=== PATIENT | female | born 1995 | race Caucasian/White ===

== ENCOUNTER 2021-08-21 07:48 | Emergency (ER) | payer MEDICAID ==
[2021-08-21 07:54] VITALS: TEMP 98
[2021-08-21] MEDS ORDERED: SODIUM CHLORIDE 0.9% 1,000 ML IV STA (08:11)
[2021-08-21] MEDS ORDERED: diphenhydrAMINE 50 MG/ML 1 ML VIAL IVP STA (08:11)
[2021-08-21] MEDS ORDERED: MORPHINE SULFATE 2 MG/ML SYRINGE IVP STA (08:11)
[2021-08-21] MEDS ORDERED: PANTOPRAZOLE 40 MG/10 ML VIAL IVP STA (08:11)
[2021-08-21] MEDS ORDERED: ONDANSETRON 4 MG/2 ML VIAL IVP STA (08:11)
[2021-08-21] MEDS ORDERED: MAG HYDROX/AL HYDROX/SIMETH 30 ML, HYOSCYAMINE ELIXIR 10 ML, LIDOCAINE VISCOUS 2% 10 ML PO STA ×3 (08:12)
[2021-08-21] MEDS ORDERED: LORazepam 1 MG TAB PO STA (08:13)
--- NOTE | 2021-08-21 08:20 | ED ---
General Adult HPI - General Chief complaint: Abdominal Pain Stated complaint: Abd/Back pain Time Seen by Provider: 08/21/21 07:55 Source: patient, RN notes reviewed, old records reviewed Limitations: no limitations - History of Present Illness Initial comments: Patient is a 26 year old female with past medical history remarkable for anxiety who presents emergency Department complaining of epigastric abdominal pain as well as substernal chest pain. Patient states she had a tooth pulled yesterday and was doing well. Was prescribed ibuprofen, antibiotic. She is been taking ibuprofen and antibiotic but she believes that the ibuprofen may be causing her stomach to feel bad. She states that this has happened previously with ibuprofen use. She tries to avoid it. Her abdominal symptoms are identical. Endorses nausea but no vomiting. No constipation or diarrhea. No vaginal discharge or bleeding. No urinary complaints. States the pain seems to radiate up substernally. It is a burning/sharp sensation that is somewhat worse with movement. States that her chest tightness is similar to anxiety in the past but is "stronger." Is not on medications for anxiety at home. Presents for further evaluation at this time. Denies any weakness, numbness, headaches. Denies any back pain. His no acute complaint at this time.Symptoms began approximately 3 hours ago. - Related Data Home Medications Medication Instructions Recorded Confirmed Azithromycin [Zithromax Z Pack] See Taper PO DAILY 08/21/21 08/21/21 Chlorhexidine Gluconate [Peridex] 15 ml PO BID 08/21/21 08/21/21 Ibuprofen [Motrin] 800 mg PO Q8H PRN 08/21/21 08/21/21 Previous Rx's Medication Instructions Recorded LORazepam [Ativan] 0.5 mg PO DAILY PRN 3 Days #3 tab 08/21/21 Mag Hydrox/Al Hydrox/Simeth 30 ml PO BID PRN #500 ml 08/21/21 [Maalox] Allergies Allergy/AdvReac Type Severity Reaction Status Date / Time Penicillins Allergy Swelling Verified 08/21/21 08:26 Review of Systems ROS Statement: Those systems with pertinent positive or pertinent negative responses have been documented in the HPI. Review of Systems: CONST: Denies fever EYES: Denies blurry vision ENT: Denies nasal congestion C/V: Endorses chest pain RESP: Denies shortness of breath GI: Endorses abdominal pain : Denies dysuria SKIN: Denies rash. MSK: Denies joint pain. NEURO: Denies headache ROS Other: All systems not noted in ROS Statement are negative. Past Medical History Past Medical History: No Reported History History of Any Multi-Drug Resistant Organisms: None Reported Past Surgical History: No Surgical Hx Reported Past Psychological History: No Psychological Hx Reported Smoking Status: Never smoker Past Alcohol Use History: None Reported Past Drug Use History: Marijuana General Exam - General Exam Comments Initial Comments: General: Appears in mild distress secondary to abdominal discomfort. HEAD: Normal with no signs of head trauma. EYES: PERRLA, EOMI, conjunctiva normal, no discharge. ENT: Hearing grossly intact, normal oropharynx. Moist mucous membranes.Left lower molar tooth extraction site is clean, no sign of infection, no erythema or edema. No oral swelling, neck swelling. RESPIRATORY: Clear breath sounds bilaterally. No wheezes, rales, or rhonchi. C/V: Regular rate and rhythm. S1 and S2 auscultated, no edema, peripheral pulses 2+ and intact throughout ABD: Abdomen is soft, nondistended. Mild tenderness to palpation in the epigastric region. No guarding. No peritoneal signs. No rebound tenderness. EXT: Normal range of motion, no obvious deformity SKIN: No rashes or lesions observed on exposed skin. NEURO: Alert and oriented 4. Limitations: no limitations Course Vital Signs 08/21/21 08/21/21 07:49 09:54 Temperature 98 F Pulse Rate 108 H 86 Respiratory 22 16 Rate Blood Pressure 122/81 110/68 O2 Sat by Pulse 100 100 Oximetry Medical Decision Making - Medical Decision Making Based on the patient's presentation and physical exam, I'm concerned for intra- abdominal process for current symptoms. Cannot rule out atypical chest pain. If her cardiac screening will be obtained including EKG, troponin and abdominal laboratory studies. She'll be symptomatic treatment with IV medications and fluids. Her chest pain does seem somewhat anxiety related and therefore she will be given a small dose of Ativan. She was in agreement this plan. Chest x-ray and abdominal x-ray will also be obtained. Vital signs are within normal limits. Initial tachycardia in triage has resolved at bedside. EKG shows no signs of acute ischemia. Chest x-ray and abdominal x-ray were relatively unremarkable. Abdominal x-ray did show nonspecific findings for possible enteritis. It does mention ileus, however patient has had no change in bowel movements. No reason to suggest ileus at this time. Laboratory studies were remarkable except for slight elevation in AST and ALT. Patient is not . Troponin is undetectable. Urinalysis is within normal limits. Remainder the labs are unremarkable. On reevaluation, patient's symptoms have resolved. I discussed with her her workup. It seems to have likely been a mix of anxiety as well as possible gastritis, however I did discuss she requires follow up with her PCP for further monitoring. She was in agreement this plan. She is tolerating oral intake. I will provide her with recommendations for PCP as well as instructed her to follow up with her insurance company for recommendations. She'll be discharged home at this time. I will provide the patient with a prescription for 3 tablets of Ativan, Maalox. I instructed her to continue her antibiotics. I instructed the patient to follow up with their PCP in the next 1-3 days . I explained that the patient should return to the emergency department if they experience any worsening symptoms. Strict return precautions were discussed with the patient. The patient expressed understanding of these instructions. I answered all questions that the patient had. The patient was discharged home in good condition with their prescriptions and follow up information. - Lab Data Result diagrams: 08/21/21 08:16 08/21/21 08:16 Lab Results 08/21/21 08/21/21 08/21/21 Range/Units 08:16 08:16 08:16 WBC 9.9 (3.8-10.6) k/uL RBC 3.84 (3.80-5.40) m/uL Hgb 11.9 (11.4-16.0) gm/dL Hct 35.6 (34.0-46.0) % MCV 92.8 (80.0-100.0) fL MCH 31.0 (25.0-35.0) pg MCHC 33.5 (31.0-37.0) g/dL RDW 12.0 (11.5-15.5) % Plt Count 255 (150-450) k/uL MPV 7.3 Neutrophils % 84 % Lymphocytes % 7 % Monocytes % 4 % Eosinophils % 4 % Basophils % 0 % Neutrophils # 8.3 H (1.3-7.7) k/uL Lymphocytes # 0.7 L (1.0-4.8) k/uL Monocytes # 0.4 (0-1.0) k/uL Eosinophils # 0.4 (0-0.7) k/uL Basophils # 0.0 (0-0.2) k/uL PT 10.3 (9.0-12.0) sec INR 0.9 (<1.2) APTT 24.1 (22.0-30.0) sec Sodium (137-145) mmol/L Potassium (3.5-5.1) mmol/L Chloride (98-107) mmol/L Carbon Dioxide (22-30) mmol/L Anion Gap mmol/L BUN (7-17) mg/dL Creatinine (0.52-1.04) mg/dL Est GFR (CKD-EPI)AfAm (>60 ml/min/1.73 sqM) Est GFR (CKD-EPI)NonAf (>60 ml/min/1.73 sqM) Glucose (74-99) mg/dL Calcium (8.4-10.2) mg/dL Total Bilirubin (0.2-1.3) mg/dL AST (14-36) U/L ALT (4-34) U/L Alkaline Phosphatase (38-126) U/L Troponin I (0.000-0.034) ng/mL Total Protein (6.3-8.2) g/dL Albumin (3.5-5.0) g/dL Amylase (30-110) U/L Lipase (23-300) U/L HCG, Qual Urine Color Yellow Urine Appearance Clear (Clear) Urine pH 6.0 (5.0-8.0) Ur Specific [place] 1.022 (1.001-1.035) Urine Protein Trace H (Negative) Urine Glucose (UA) Negative (Negative) Urine Ketones Negative (Negative) Urine Blood Negative (Negative) Urine Nitrite Negative (Negative) Urine Bilirubin Negative (Negative) Urine Urobilinogen 6.0 (<2.0) mg/dL Ur Leukocyte Esterase Negative (Negative) 08/21/21 08/21/21 Range/Units 08:16 08:16 WBC (3.8-10.6) k/uL RBC (3.80-5.40) m/uL Hgb (11.4-16.0) gm/dL Hct (34.0-46.0) % MCV (80.0-100.0) fL MCH (25.0-35.0) pg MCHC (31.0-37.0) g/dL RDW (11.5-15.5) % Plt Count (150-450) k/uL MPV Neutrophils % % Lymphocytes % % Monocytes % % Eosinophils % % Basophils % % Neutrophils # (1.3-7.7) k/uL Lymphocytes # (1.0-4.8) k/uL Monocytes # (0-1.0) k/uL Eosinophils # (0-0.7) k/uL Basophils # (0-0.2) k/uL PT (9.0-12.0) sec INR (<1.2) APTT (22.0-30.0) sec Sodium 138 (137-145) mmol/L Potassium 3.8 (3.5-5.1) mmol/L Chloride 105 (98-107) mmol/L Carbon Dioxide 24 (22-30) mmol/L Anion Gap 9 mmol/L BUN 14 (7-17) mg/dL Creatinine 0.49 L (0.52-1.04) mg/dL Est GFR (CKD-EPI)AfAm >90 (>60 ml/min/1.73 sqM) Est GFR (CKD-EPI)NonAf >90 (>60 ml/min/1.73 sqM) Glucose 114 H (74-99) mg/dL Calcium 8.8 (8.4-10.2) mg/dL Total Bilirubin 0.5 (0.2-1.3) mg/dL AST 234 H (14-36) U/L ALT 101 H (4-34) U/L Alkaline Phosphatase 63 (38-126) U/L Troponin I <0.012 (0.000-0.034) ng/mL Total Protein 6.7 (6.3-8.2) g/dL Albumin 4.2 (3.5-5.0) g/dL Amylase 65 (30-110) U/L Lipase 130 (23-300) U/L HCG, Qual Not Detected Urine Color Urine Appearance (Clear) Urine pH (5.0-8.0) Ur Specific [place] (1.001-1.035) Urine Protein (Negative) Urine Glucose (UA) (Negative) Urine Ketones (Negative) Urine Blood (Negative) Urine Nitrite (Negative) Urine Bilirubin (Negative) Urine Urobilinogen (<2.0) mg/dL Ur Leukocyte Esterase (Negative) - EKG Data -: EKG Interpreted by Me EKG Comments: 12-lead Electrocardiogram Interpretation Note EKG was reviewed and interpreted by myself. 12-lead ECG performed at 0802 is interpreted by me as revealing normal sinus rhythm at a rate of 88 beats per minute. [place] is normal. [place] interval is 121 ms, QRS duration is 88 ms, QTc is 396 ms.. There were no ST or T wave abnormalities to suggest myocardial ischemia or injury. R wave progression across the precordium was satisfactory. By my interpretation this EKG is non-diagnostic for acute ischemia. Disposition Clinical Impression: Abdominal pain, Atypical chest pain, Anxiety Disposition: HOME SELF-CARE Condition: Good Instructions (If sedation given, give patient instructions): Abdominal Pain (ED), Anxiety (ED) Prescriptions: LORazepam [Ativan] 0.5 mg PO DAILY PRN 3 Days #3 tab PRN Reason: Anxiety Mag Hydrox/Al Hydrox/Simeth [Maalox] 30 ml PO BID PRN #500 ml PRN Reason: Dyspepsia Is patient prescribed a controlled substance at d/c from ED?: Yes When asked, does pt state using other controlled substances?: No If prescribed controlled substance>3 days was MAPS reviewed?: Prescribed <3 Days Referrals: None,Stated [Primary Care Provider] - 1-2 days Bradley Faulkner [STAFF PHYSICIAN] - 1-2 days Eleonora Dick MD [REFERRING] - 1-2 days Time of Disposition: 09:50
[2021-08-21 08:40] LABS: Basophils % (A) 0 %; Eosinophils # (A) 0.4 k/uL (0-0.7); Eosinophils % (A) 4 %; HCT 35.6 % (34.0-46.0); HGB 11.9 gm/dL (11.4-16.0); Lymphocytes # (A) 0.7 k/uL (1.0-4.8); Lymphocytes % (A) 7 %; MCHC 33.5 g/dL (31.0-37.0); MCV 92.8 fL (80.0-100.0); Mean Platelet Volume 7.3; Monocytes # (A) 0.4 k/uL (0-1.0); Monocytes % (A) 4 %; Neutrophils # (A) 8.3 k/uL (1.3-7.7); Neutrophils % (A) 84 %; Platelet Count 255 k/uL (150-450); RBC 3.84 m/uL (3.80-5.40); WBC 9.9 k/uL (3.8-10.6)
[2021-08-21 08:52] LABS: INR 0.9 (<1.2); Partial Thromboplastin Time 24.1 sec (22.0-30.0); Prothrombin Time 10.3 sec (9.0-12.0)
[2021-08-21 09:05] LABS: HCG,Qualitative Serum Not Detected
[2021-08-21 09:06] LABS: ALT 101 U/L (4-34); AST 234 U/L (14-36); African American GFR (CKD) >90 (>60 ml/min/1.73 sqM); Albumin 4.2 g/dL (3.5-5.0); Alkaline Phosphatase 63 U/L (38-126); Amylase 65 U/L (30-110); Anion Gap 9 mmol/L; Blood Urea Nitrogen 14 mg/dL (7-17); Calcium 8.8 mg/dL (8.4-10.2); Carbon Dioxide 24 mmol/L (22-30); Chloride 105 mmol/L (98-107); Glucose 114 mg/dL (74-99); Lipase 130 U/L (23-300); Non-African American GFR(CKD) >90 (>60 ml/min/1.73 sqM); Potassium 3.8 mmol/L (3.5-5.1); Sodium 138 mmol/L (137-145); Total Bilirubin 0.5 mg/dL (0.2-1.3); Total Protein 6.7 g/dL (6.3-8.2)
[2021-08-21 09:09] LABS: Appearance,Urine Clear (Clear); Bilirubin,Urine Negative (Negative); Blood,Urine Negative (Negative); Color,Urine Yellow; Glucose,Urine (UA) Negative (Negative); Ketones,Urine Negative (Negative); Leukocyte Esterase,Urine Negative (Negative); Nitrite,Urine Negative (Negative); Protein,Urine Trace (Negative); Specific Gravity,Urine 1.022 (1.001-1.035)
--- NOTE | 2021-08-21 09:28 | XR ---
KUB HISTORY: Abdomen pain Frontal KUB submitted, no comparisons Air-fluid levels are present without bowel distention. Lung bases are clear. There is no evident pneu moperitoneum. Bone mineralization is normal. No pathologic calcification. IMPRESSION: Findings could represent an ileus or enteritis, follow-up as indicated
--- NOTE | 2021-08-21 09:29 | XR ---
EXAMINATION TYPE: XR chest 2V DATE OF EXAM: 08/21/2021 COMPARISON: NONE HISTORY: Pain TECHNIQUE: Frontal and lateral views of the chest are obtained. FINDINGS: There is no focal air space opacity, pleural effusion, or pneumothorax seen. The cardiac silhouette size is within normal limits. The osseous structures are intact, slight spinal curvature noted. IMPRESSION: No acute cardiopulmonary process.
[2021-08-21 09:55] VITALS: BP 110/68; PULSE 86; RESP 16
== END 2021-08-21 09:58 | disposition home or self-care (01) ==
LOC: EC 07:48
DX: F41.9 Anxiety disorder, unspecified (principal); R10.31 Right lower quadrant pain; R07.89 Other chest pain; Z88.0 Allergy status to penicillin
CPT/HCPCS: 36415; 93005; 80053; 82150; 83690; 84484; 85025; 85610; 85730; 81003; 84703; 71046; 74018; 99285; 96374; 96375; 96361; J1200; J2405; J2270; C9113

== ENCOUNTER 2022-10-09 13:29 | Emergency (ER) | payer OTHER ==
--- NOTE | 2022-10-09 16:07 | ED ---
General Adult HPI - General Chief complaint: Wound/Laceration Stated complaint: [facility], FINGER INJURY Time Seen by Provider: 10/09/22 14:10 Source: patient Mode of arrival: ambulatory Limitations: no limitations - History of Present Illness Initial comments: 27-year-old female presenting to the ED with a chief complaint of finger injury. She works at [employer]. States that she accidentally cut her left third finger with the bread slicer. Since then notes laceration and bleeding. Denies any other injury at this time. Last tetanus shot was 2 years ago. No other complaints. - Related Data Home Medications Medication Instructions Recorded Confirmed Azithromycin [Zithromax Z Pack] See Taper PO DAILY 08/21/21 08/21/21 Chlorhexidine Gluconate [Peridex] 15 ml PO BID 08/21/21 08/21/21 Ibuprofen [Motrin] 800 mg PO Q8H PRN 08/21/21 08/21/21 Previous Rx's Medication Instructions Recorded LORazepam [Ativan] 0.5 mg PO DAILY PRN 3 Days #3 tab 08/21/21 Mag Hydrox/Al Hydrox/Simeth 30 ml PO BID PRN #500 ml 08/21/21 [Maalox] Allergies Allergy/AdvReac Type Severity Reaction Status Date / Time Penicillins Allergy Swelling Verified 10/09/22 14:09 Review of Systems ROS Statement: Those systems with pertinent positive or pertinent negative responses have been documented in the HPI. ROS Other: All systems not noted in ROS Statement are negative. Past Medical History Past Medical History: No Reported History History of Any Multi-Drug Resistant Organisms: None Reported Past Surgical History: No Surgical Hx Reported Past Psychological History: No Psychological Hx Reported Smoking Status: Never smoker Past Alcohol Use History: None Reported Past Drug Use History: Marijuana General Exam Limitations: no limitations Head exam: Present: atraumatic, normocephalic Neck exam: Present: normal inspection Respiratory exam: Present: normal lung sounds bilaterally Cardiovascular Exam: Present: regular rate, normal rhythm GI/Abdominal exam: Present: soft Extremities exam: Present: other (Approximately 1-1/2 cm superficial laceration to the palmar aspect of the left third finger. Full active range of motion. Good capillary refill. Sensation intact.) Neurological exam: Present: alert, oriented X3 Skin exam: Present: warm, dry Course Vital Signs 10/09/22 14:06 Temperature 98.1 F Pulse Rate 83 Respiratory 20 Rate Blood Pressure 136/88 O2 Sat by Pulse 100 Oximetry Medical Decision Making - Medical Decision Making Was pt. sent in by a medical professional or institution (EDUARDO Gonzalez, [employer], urgent care, hospital, or custodial...) When possible be specific @ -No Did you speak to anyone other than the patient for history (EMS, parent, family, police, friend...)? What history was obtained from this source @ -No Did you review nursing and triage notes (agree or disagree)? Why? @ -I reviewed and agree with nursing and triage notes Were old charts reviewed (outside hosp., previous admission, EMS record, old EKG, old radiological studies, urgent care reports/EKG's, custodial records)? Report findings @ -No old charts were reviewed Differential Diagnosis (chest pain, altered mental status, abdominal pain women, abdominal pain men, vaginal bleeding, weakness, fever, dyspnea, syncope, headache, dizziness, GI bleed, back pain, seizure, CVA, palpatations, mental health, musculoskeletal)? @ -Acute fracture, acute tendon injury. This is not meant to be an all- inclusive list. EKG interpreted by me (3pts min.). @ -As above X-rays interpreted by me (1pt min.). @ -None done CT interpreted by me (1pt min.). @ -None done U/S interpreted by me (1pt. min.). @ -None done What testing was considered but not performed or refused? (CT, X-rays, U/S, labs)? Why? @ -None What meds were considered but not given or refused? Why? @ -None Did you discuss the management of the patient with other professionals (professionals i.e. EDUARDO Gonzalez, [employer], lab, RT, psych nurse, director social service, implementation specialist payroll, teacher, guest services officer, bottle caser)? Give summary @ -No Was smoking cessation discussed for >3mins.? @ -No Was critical care preformed (if so, how long)? @ -No Were there social determinants of health that impacted care today? How? (Homelessness, low income, unemployed, alcoholism, drug addiction, transportation, low edu. Level, literacy, decrease access to med. care, [facility], rehab)? @ -No Was there de-escalation of care discussed even if they declined (Discuss DNR or withdrawal of care, Hospice)? DNR status @ -No What co-morbidities impacted this encounter? (DM, HTN, Smoking, COPD, CAD, Cancer, CVA, ARF, Chemo, Hep., AIDS, mental health diagnosis, sleep apnea, morbid obesity)? @ -None Was patient admitted / discharged? Hospital course, mention meds given and route, prescriptions, significant lab abnormalities, going to OR and other pertinent info. @ -Discharge. Laceration was repaired with skin glue. No active bleeding at this time. Tetanus is up-to-date. Discharged home in stable condition. Discussed return precautions with patient who verbalizes agreement. Undiagnosed new problem with uncertain prognosis? @ -No Drug Therapy requiring intensive monitoring for toxicity (Heparin, Nitro, Insulin, Cardizem)? @ -No Were any procedures done? @ -Yes, laceration repair Diagnosis/symptom? @ -Laceration to left third finger Acute, or Chronic, or Acute on Chronic? @ -Acute Uncomplicated (without systemic symptoms) or Complicated (systemic symptoms)? @ -Uncomplicated Side effects of treatment? @ -No Exacerbation, Progression, or Severe Exacerbation? @ -No Poses a threat to life or bodily function? How? (Chest pain, [place], [place], pneumonia, PE, COPD, DKA, ARF, appy, cholecystitis, CVA, Diverticulitis, Homicidal, Suicid al, threat to staff... and all critical care pts) @ -No Disposition Clinical Impression: Laceration of finger Disposition: HOME SELF-CARE Condition: Good Instructions (If sedation given, give patient instructions): Skin Adhesive Care (ED) Additional Instructions: Please return to the Emergency Department if symptoms worsen or any other concerns. Monitor for signs of infection. Is patient prescribed a controlled substance at d/c from ED?: No Referrals: None,Stated [Primary Care Provider] - 1-2 days Time of Disposition: 16:09
[2022-10-09 16:16] VITALS: BP 124/72; PULSE 79; RESP 18; TEMP 98
== END 2022-10-09 16:54 | disposition home or self-care (01) ==
LOC: EC 13:29
DX: S61.213A Laceration without foreign body of left middle finger without damage to nail, initial encounter (principal); F12.90 Cannabis use, unspecified, uncomplicated; Z88.0 Allergy status to penicillin; W27.4XXA Contact with kitchen utensil, initial encounter; Y99.0 Civilian activity done for income or pay
CPT/HCPCS: 12001; 99282

== ENCOUNTER 2023-01-09 18:07 | Emergency (ER) | payer MEDICAID, OTHER ==
[2023-01-09 19:20] LABS: Basophils % (A) 0 %; Eosinophils # (A) 0.3 k/uL (0-0.7); Eosinophils % (A) 3 %; HCT 37.6 % (34.0-46.0); HGB 13.1 gm/dL (11.4-16.0); Lymphocytes % (A) 34 %; MCH 31.3 pg (25.0-35.0); MCHC 34.8 g/dL (31.0-37.0); MCV 90.1 fL (80.0-100.0); Mean Platelet Volume 7.6; Monocytes # (A) 0.4 k/uL (0-1.0); Monocytes % (A) 4 %; Neutrophils # (A) 5.1 k/uL (1.3-7.7); Neutrophils % (A) 57 %; Platelet Count 324 k/uL (150-450); RBC 4.17 m/uL (3.80-5.40); RDW 11.1 % (11.5-15.5); WBC 9.1 k/uL (3.8-10.6)
--- NOTE | 2023-01-09 19:33 | ED ---
Female Urogenital HPI - General Source: patient, RN notes reviewed Mode of arrival: ambulatory Limitations: no limitations <Elaine Flores - Last Filed: 01/09/23 19:30> <Rachel Aguilar - Last Filed: 01/10/23 00:59> - General Chief complaint: Vaginal Bleeding Stated complaint: 8wks preg-vag bleeding Time Seen by Provider: 01/09/23 19:30 - History of Present Illness Initial comments: 27-year-old female currently 8 weeks presenting with chief complaint of cramping and bleeding. Symptoms have been ongoing for the last 3 weeks. (Elaine Flores) 27-year-old female presents to the emergency department with chief complaint of continued vaginal bleeding. Last menstrual period 10416. She states that this is been going on for about 2 weeks and varies in intensity. She states today that it is minimal spotting with one pad every 3-4 hours. She admits to some mild cramping but she is not having any at this time. She has not had any care up to this point. She is currently on vitamins. No other significant past medical history. (Rachel Aguilar) - Related Data Home Medications Medication Instructions Recorded Confirmed Azithromycin [Zithromax Z Pack] See Taper PO DAILY 08/21/21 08/21/21 Chlorhexidine Gluconate [Peridex] 15 ml PO BID 08/21/21 08/21/21 Ibuprofen [Motrin] 800 mg PO Q8H PRN 08/21/21 08/21/21 Previous Rx's Medication Instructions Recorded LORazepam [Ativan] 0.5 mg PO DAILY PRN 3 Days #3 tab 08/21/21 Mag Hydrox/Al Hydrox/Simeth 30 ml PO BID PRN #500 ml 08/21/21 [Maalox] Allergies Allergy/AdvReac Type Severity Reaction Status Date / Time Penicillins Allergy Swelling Verified 01/09/23 18:33 Review of Systems ROS Other: All systems not noted in ROS Statement are negative. <Elaine Flores - Last Filed: 01/09/23 19:30> ROS Other: All systems not noted in ROS Statement are negative. <Rachel Aguilar - Last Filed: 01/10/23 00:59> ROS Statement: Those systems with pertinent positive or pertinent negative responses have been documented in the HPI. Past Medical History Past Medical History: No Reported History History of Any Multi-Drug Resistant Organisms: None Reported Past Surgical History: No Surgical Hx Reported Past Psychological History: No Psychological Hx Reported Smoking Status: Never smoker Past Alcohol Use History: None Reported Past Drug Use History: None Reported, Marijuana <Elaine Flores - Last Filed: 01/09/23 19:30> General Exam Limitations: no limitations <Elaine Flores - Last Filed: 01/09/23 19:30> General appearance: alert, in no apparent distress Head exam: Present: atraumatic, normocephalic, normal inspection Eye exam: Present: normal appearance, PERRL, EOMI. Absent: scleral icterus, conjunctival injection, periorbital swelling ENT exam: Present: normal exam, mucous membranes moist Neck exam: Present: normal inspection. Absent: tenderness, meningismus, lymphadenopathy Respiratory exam: Present: normal lung sounds bilaterally. Absent: respiratory distress, wheezes, rales, rhonchi, stridor Cardiovascular Exam: Present: regular rate, normal rhythm, normal heart sounds. Absent: systolic murmur, diastolic murmur, rubs, gallop, clicks GI/Abdominal exam: Present: soft, normal bowel sounds. Absent: distended, tenderness, guarding, rebound, rigid Back exam: Present: normal inspection Neurological exam: Present: alert, oriented X3 Psychiatric exam: Present: normal affect, normal mood Skin exam: Present: warm, dry, intact, normal color. Absent: rash <Rachel Aguilar - Last Filed: 01/10/23 00:59> - General Exam Comments Initial Comments: Visual Physical Exam Vital signs reviewed General: Well-appearing, nontoxic, no acute distress. Head: Normocephalic, atraumatic Eyes: PERRLA, EOMI ENT: Airway patent Chest: Nonlabored breathing Skin: No visual rash, normal skin tone Neuro: Alert and oriented 3 Musculoskeletal: No gross abnormalities (Elaine Flores) Course Vital Signs 01/09/23 01/09/23 01/09/23 18:30 20:58 21:55 Temperature 98.0 F 98.2 F Pulse Rate 109 H 72 82 Respiratory 20 18 18 Rate Blood Pressure 133/95 118/66 107/76 O2 Sat by Pulse 98 99 98 Oximetry Medical Decision Making - Lab Data Result diagrams: 01/09/23 18:38 <MarkScottieyee - Last Filed: 01/09/23 19:30> - Lab Data Result diagrams: 01/09/23 18:38 01/09/23 18:38 <Rachel Aguilar - Last Filed: 01/10/23 00:59> - Medical Decision Making Was pt. sent in by a medical professional or institution (, PA, FLOOR SPACE ALLOCATOR, urgent care, hospital, or usp...) When possible be specific @ -No Did you speak to anyone other than the patient for history (EMS, parent, family, police, friend...)? What history was obtained from this source @ -No Did you review nursing and triage notes (agree or disagree)? Why? @ -I reviewed and agree with nursing and triage notes Were old charts reviewed (outside hosp., previous admission, EMS record, old EKG, old radiological studies, urgent care reports/EKG's, usp records)? Report findings @ -No old charts were reviewed Differential Diagnosis (chest pain, altered mental status, abdominal pain women, abdominal pain men, vaginal bleeding, weakness, fever, dyspnea, syncope, headache, dizziness, GI bleed, back pain, seizure, CVA, palpatations, mental health, musculoskeletal)? @ -Differential Vaginal Bleeding: Spontaneous , threatened , molar , ectopic , bloody show, incompetent cervix, abruptioplacenta, placenta previa, uterine rupture, dysfunctional uterine bleeding, hemorrhage, uterine fibroids, this is not meant to be an all-inclusive list. EKG interpreted by me (3pts min.). @ -None X-rays interpreted by me (1pt min.). @ -None done CT interpreted by me (1pt min.). @ -None done U/S interpreted by me (1pt. min.). @ -Ultrasound shows intrauterine gestational sac with the exact but no evidence of IUP What testing was considered but not performed or refused? (CT, X-rays, U/S, labs)? Why? @ -None What meds were considered but not given or refused? Why? @ -None Did you discuss the management of the patient with other professionals (professionals i.e. , PA, FLOOR SPACE ALLOCATOR, lab, RT, psych nurse, manager social work, roller, teacher, infantry weapons officer, case hardener)? Give summary @ -Management was discussed with Dr. Harrington who recommends repeat hCG in 48 hours and outpatient follow-up in the office Was smoking cessation discussed for >3mins.? @ -No Was critical care preformed (if so, how long)? @ -No Were there social determinants of health that impacted care today? How? (Justyn elessness, low income, unemployed, alcoholism, drug addiction, transportation, low edu. Level, literacy, decrease access to med. care, residential, rehab)? @ -No Was there de-escalation of care discussed even if they declined (Discuss DNR or withdrawal of care, Hospice)? DNR status @ -No What co-morbidities impacted this encounter? (DM, HTN, Smoking, COPD, CAD, Cancer, CVA, ARF, Chemo, Hep., AIDS, mental health diagnosis, sleep apnea, morbid obesity)? @ -None Was patient admitted / discharged? Hospital course, mention meds given and route, prescriptions, significant lab abnormalities, going to OR and other pertinent info. @ -Discharged. Patient presented to emergency department chief complaint vaginal bleeding and .Laboratory studies essentially unremarkable, hCG 12933, blood type B+ and not requiring repair; UA shows large blood,>182 RBCs; ultrasound shows intrauterine gestational sac with yolk sac but no evidence of IUP, irregular shape of sac with internal debris noted. Management was discussed with Dr. Harrington who recommends repeat hCG in 48 hours and outpatient follow-up in the office on Thursday. Patient understanding and agreeable with plan. Patient stable at time of discharge. Case discussed with Dr. Jorge Undiagnosed new problem with uncertain prognosis? @ -No Drug Therapy requiring intensive monitoring for toxicity (Heparin, Nitro, Insulin, Cardizem)? @ -No Were any procedures done? @ -No Diagnosis/symptom? @ -threatened miscarriage Acute, or Chronic, or Acute on Chronic? @ -acute Uncomplicated (without systemic symptoms) or Complicated (systemic symptoms)? @ uncomplicated] Side effects of treatment? @ -No Exacerbation, Progression, or Severe Exacerbation? @ -No Poses a threat to life or bodily function? How? (Chest pain, [place], [place], pneumonia, PE, COPD, DKA, ARF, appy, cholecystitis, CVA, Diverticulitis, Homicidal, Suicidal, threat to staff... and all critical care pts) @ -No (MikerickashelyRachel) - Lab Data Lab Results 01/09/23 01/09/23 01/09/23 Range/Units 18:38 18:38 18:38 WBC 9.1 (3.8-10.6) k/uL RBC 4.17 (3.80-5.40) m/uL Hgb 13.1 (11.4-16.0) gm/dL Hct 37.6 (34.0-46.0) % MCV 90.1 (80.0-100.0) fL MCH 31.3 (25.0-35.0) pg MCHC 34.8 (31.0-37.0) g/dL RDW 11.1 L (11.5-15.5) % Plt Count 324 (150-450) k/uL MPV 7.6 Neutrophils % 57 % Lymphocytes % 34 % Monocytes % 4 % Eosinophils % 3 % Basophils % 0 % Neutrophils # 5.1 (1.3-7.7) k/uL Lymphocytes # 3.0 (1.0-4.8) k/uL Monocytes # 0.4 (0-1.0) k/uL Eosinophils # 0.3 (0-0.7) k/uL Basophils # 0.0 (0-0.2) k/uL Sodium (137-145) mmol/L Potassium (3.5-5.1) mmol/L Chloride (98-107) mmol/L Carbon Dioxide (22-30) mmol/L Anion Gap mmol/L BUN (7-17) mg/dL Creatinine (0.52-1.04) mg/dL Est GFR (CKD-EPI)AfAm (>60 ml/min/1.73 sqM) Est GFR (CKD-EPI)NonAf (>60 ml/min/1.73 sqM) Glucose (74-99) mg/dL Calcium (8.4-10.2) mg/dL Total Bilirubin (0.2-1.3) mg/dL AST (14-36) U/L ALT (4-34) U/L Alkaline Phosphatase (38-126) U/L Total Protein (6.3-8.2) g/dL Albumin (3.5-5.0) g/dL HCG, Quant mIU/mL Urine Color Yellow Urine Appearance Cloudy H (Clear) Urine pH 6.0 (5.0-8.0) Ur Specific [place] 1.025 (1.001-1.035) Urine Protein Trace H (Negative) Urine Glucose (UA) Negative (Negative) Urine Ketones Negative (Negative) Urine Blood Large H (Negative) Urine Nitrite Negative (Negative) Urine Bilirubin Negative (Negative) Urine Urobilinogen <2.0 (<2.0) mg/dL Ur Leukocyte Esterase Small H (Negative) Urine RBC >182 H (0-5) /hpf Urine WBC 10 H (0-5) /hpf Ur Squamous Epith Cells 5 H (0-4) /hpf Urine Mucus Many H (None) /hpf Urine HCG, Qual Detected (Not Detectd) Blood Type Blood Type Confirm Blood Type Recheck Bld Type Recheck Status Antibody Screen Spec Expiration Date 01/09/23 01/09/23 01/09/23 Range/Units 18:38 19:00 19:05 WBC (3.8-10.6) k/uL RBC (3.80-5.40) m/uL Hgb (11.4-16.0) gm/dL Hct (34.0-46.0) % MCV (80.0-100.0) fL MCH (25.0-35.0) pg MCHC (31.0-37.0) g/dL RDW (11.5-15.5) % Plt Count (150-450) k/uL MPV Neutrophils % % Lymphocytes % % Monocytes % % Eosinophils % % Basophils % % Neutrophils # (1.3-7.7) k/uL Lymphocytes # (1.0-4.8) k/uL Monocytes # (0-1.0) k/uL Eosinophils # (0-0.7) k/uL Basophils # (0-0.2) k/uL Sodium 137 (137-145) mmol/L Potassium 3.9 (3.5-5.1) mmol/L Chloride 102 (98-107) mmol/L Carbon Dioxide 22 (22-30) mmol/L Anion Gap 13 mmol/L BUN 16 (7-17) mg/dL Creatinine 0.37 L (0.52-1.04) mg/dL Est GFR (CKD-EPI)AfAm >90 (>60 ml/min/1.73 sqM) Est GFR (CKD-EPI)NonAf >90 (>60 ml/min/1.73 sqM) Glucose 91 (74-99) mg/dL Calcium 9.4 (8.4-10.2) mg/dL Total Bilirubin 0.3 (0.2-1.3) mg/dL AST 25 (14-36) U/L ALT 20 (4-34) U/L Alkaline Phosphatase 52 (38-126) U/L Total Protein 7.4 (6.3-8.2) g/dL Albumin 4.6 (3.5-5.0) g/dL HCG, Quant 64830.5 mIU/mL Urine Color Urine Appearance (Clear) Urine pH (5.0-8.0) Ur Specific [place] (1.001-1.035) Urine Protein (Negative) Urine Glucose (UA) (Negative) Urine Ketones (Negative) Urine Blood (Negative) Urine Nitrite (Negative) Urine Bilirubin (Negative) Urine Urobilinogen (<2.0) mg/dL Ur Leukocyte Esterase (Negative) Urine RBC (0-5) /hpf Urine WBC (0-5) /hpf Ur Squamous Epith Cells (0-4) /hpf Urine Mucus (None) /hpf Urine HCG, Qual (Not Detectd) Blood Type B Positive Blood Type Confirm B Positive Blood Type Recheck No Previous Record Bld Type Recheck Status CABO Indicated Antibody Screen NEGATIVE Spec Expiration Date 01/12/2023 - 2337 Disposition <Elaine Flores - Last Filed: 01/09/23 19:30> Is patient prescribed a controlled substance at d/c from ED?: No <Rachel Aguilar - Last Filed: 01/10/23 00:59> Clinical Impression: Threatened Disposition: HOME SELF-CARE Condition: Stable Instructions (If sedation given, give patient instructions): Threatened Miscarriage (ED) Additional Instructions: Please follow up with IRRIGATION WORKER on Thursday. Have repeat bHCG drawn in 48 hours. Return to the emergency department for new or worsening symptoms. Referrals: None,Stated [Primary Care Provider] - 1-2 days Aries Harrington MD [STAFF PHYSICIAN] - 1-2 days
[2023-01-09 19:45] LABS: Appearance,Urine Cloudy (Clear); Bilirubin,Urine Negative (Negative); Blood,Urine Large (Negative); Color,Urine Yellow; Glucose,Urine (UA) Negative (Negative); Ketones,Urine Negative (Negative); Leukocyte Esterase,Urine Small (Negative); Mucus,Urine Many /hpf; Nitrite,Urine Negative (Negative); Protein,Urine Trace (Negative); RBC,Urine >182 /hpf (0-5); Specific Gravity,Urine 1.025 (1.001-1.035); Squamous Epithelial Cell,Urine 5 /hpf (0-4); Urobilinogen,Urine <2.0 mg/dL (<2.0); WBC,Urine 10 /hpf (0-5)
[2023-01-09 19:53] LABS: ALT 20 U/L (4-34); AST 25 U/L (14-36); African American GFR (CKD) >90 (>60 ml/min/1.73 sqM); Albumin 4.6 g/dL (3.5-5.0); Alkaline Phosphatase 52 U/L (38-126); Anion Gap 13 mmol/L; Blood Urea Nitrogen 16 mg/dL (7-17); Calcium 9.4 mg/dL (8.4-10.2); Carbon Dioxide 22 mmol/L (22-30); Chloride 102 mmol/L (98-107); Glucose 91 mg/dL (74-99); Non-African American GFR(CKD) >90 (>60 ml/min/1.73 sqM); Potassium 3.9 mmol/L (3.5-5.1); Sodium 137 mmol/L (137-145); Total Bilirubin 0.3 mg/dL (0.2-1.3); Total Protein 7.4 g/dL (6.3-8.2)
[2023-01-09 21:06] VITALS: RESP 18
--- NOTE | 2023-01-09 21:08 | US ---
EXAMINATION TYPE: Transabdominal and transvaginal ultrasound OB less than 14 weeks DATE OF EXAM: 01/09/2023 8:06 PM COMPARISON: NONE CLINICAL INDICATION: Female, 27 years old with history of bleeding, cramping, 8 weeks preg; Intermitt ent spotting, vaginal bleeding for 3 weeks EXAM PERFORMED: Transvaginal (TV) and Transabdominal (TA) ultrasound pelvis with limited color Doppl er EXAM MEASUREMENTS: GESTATIONAL AGE / DATING Physician Established: Not yet established Dates by LMP: (10 weeks/2 days) EDC: 08/05/23 Dates by First Scan: No previous scan here Dates by Current Scan for: (6 weeks/6 days) - MSD MATERNAL ANATOMY Uterus: 8.5 x 4.2 x 5.5cm Right Ovary: 3.0 x 1.9 x 1.9cm Left Ovary: 2.5 x 1.6 x 1.9cm Post CDS / Adnexa: wnl Presence of free fluid: no Presence of corpus luteal cyst: yes, hypoechoic area right ovary = 1.7 x 1.7 x 1.4cm Presence of subchorionic hematoma: yes = 2.8 x 0.7 x 1.7cm GESTATION / SURVEY MSD: 1.9cm (6 weeks/6 days); this measures significantly behind the dates by LMP Yolk Sac (normal less than 6mm): 0.2cm IUP: No evidence of distinct pole at this time. Irregular shape of the gestational sac with de bris noted in the gestational sac. Date of LMP: 10/29/22 Beta HcG (if available): Not available at this time IMPRESSION: 1. Intrauterine gestational sac containing a yolk sac but no evidence of IUP. Irregular shape of the sac with internal debris noted. Findings are very likely related to blighted ovum lungs/anembryonic . Recommend clinical correlation with follow-up of serial serum beta-hCG levels, and ultraso und/s as needed. 2. No suspicious adnexal mass or free pelvic fluid.
[2023-01-09 22:26] VITALS: BP 107/76; PULSE 82; TEMP 98.2
== END 2023-01-09 22:03 | disposition home or self-care (01) ==
LOC: EC 18:07
DX: O20.0 Threatened abortion (principal); F12.90 Cannabis use, unspecified, uncomplicated; Z88.0 Allergy status to penicillin; Z3A.08 8 weeks gestation of pregnancy
CPT/HCPCS: 36415; 76801; 76817; 80053; 81001; 81025; 84702; 85025; 86850; 86900; 86901; 99284

== ENCOUNTER → 2023-01-12 | Outpatient (CLI) | payer MEDICAID | END | disposition home or self-care (01) | LOC: LABWHC1 12:47 | PROVIDERS: ATTEND Physician Assistant | DX: O20.0 Threatened abortion (principal); Z3A.00 Weeks of gestation of pregnancy not specified | CPT/HCPCS: 36415; 84702 ==